=== PATIENT | female | born 1980 | race Caucasian/White ===

== ENCOUNTER 2016-08-07 00:41 | Emergency (ER) | payer OTHER ==
[~2016-08-07] VITALS: Ht 157.5 cm; Wt 60.8 kg
--- NOTE | 2016-08-07 00:49 | ED GI/GU/ABDOMINAL COMPLAINT ---
History of Present Illness General Chief Complaint: Female Urogenital Problems Stated Complaint: ? KIDNEY STONE 8 MTHS PREG Source: patient, family Exam Limitations: no limitations Vital Signs & Intake/Output Vital Signs & Intake/Output Vital Signs Date Time Temp Pulse Resp B/P B/P Pulse O2 O2 Flow FiO2 Mean Ox Delivery Rate 08/07 0244 97.5 91 18 109/80 95 Room Air 08/07 0124 Room Air 08/07 0115 96.6 86 16 111/64 96 Room Air Allergies Coded Allergies: No Known Allergies (08/07/16) Triage Nurses Notes Reviewed? yes ? y Is pt currently ? No HPI: Patient is 8 months . Patient at work today when she developed right flank pain. 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 Reshma for times went to [place]. While there she had an ultrasound which showed good movement. She was also diagnosed with a right sided kidney stone. Patient was given one Tylenol with Codeine while in the emergency room and then surgically discharged with prescription for Tylenol with Codeine. Patient went to the pharmacy and the pain became so intense that she had to lay on the floor. The pain is 10 out of 10. The pain is in the right flank and radiates towards the right groin. There is no nausea or vomiting. The pain is crampy and colicky in nature. There are no aggravating or mitigating factors. Past History Medical History Any Pertinent Medical History? see below for history Surgical History Surgical History: non-contributory Psychosocial History Tobacco Use: Quit >30 days ago ETOH Use: denies use Illicit Drug Use: denies illicit drug use Family History Hx Contributory? No Review of Systems Review of Systems Constitutional: Reports: no symptoms. EENTM: Reports: no symptoms. Respiratory: Reports: no symptoms. Cardiovascular: Reports: no symptoms. GI: Reports: see HPI. Genitourinary: Reports: no symptoms. Musculoskeletal: Reports: see HPI, back pain. Skin: Reports: no symptoms. Neurological/Psychological: Reports: no symptoms. Hematologic/Endocrine: Reports: no symptoms. Immunologic/Allergic: Reports: no symptoms. All Other Systems: Reviewed and Negative Physical Exam Physical Exam General Appearance: well developed/nourished, alert, awake, anxious, moderate distress Head: atraumatic, normal appearance Eyes: Bilateral: PERRL, EOMI. Ears, Nose, Throat, Mouth: hearing grossly normal, moist mucous membrane Neck: normal inspection, supple, full range of motion Respiratory: normal breath sounds, chest non-tender, no respiratory distress, lungs clear Cardiovascular: regular rate/rhythm, normal peripheral pulses Gastrointestinal: normal bowel sounds, soft, non-tender, GRAVID Back: CVA tenderness (R) Extremities: normal range of motion Neurologic/Psych: no motor/sensory deficits, awake, alert, oriented x 3, normal gait, normal mood/affect Skin: intact, normal color, warm/dry Core Measures ACS in differential dx? No Severe Sepsis Present: No Septic Shock Present: No Progress Differential Diagnosis: kidney stone, UTI/pyelo Plan of Care: Orders Procedure Date/time Status COMPREHENSIVE METABOLIC PANEL 08/07 56 Complete CBC WITHOUT DIFFERENTIAL 08/07 56 Complete URINALYSIS 08/07 46 Complete Laboratory Tests 08/07/16 0108: Urine Color YEL, Urine Clarity CLEAR, Urine pH 7.0, Ur Specific [place] <= 1.005 , Urine Protein NEG, Urine Ketones TRACE H, Urine Nitrite NEG, Urine Bilirubin NEG, Urine Urobilinogen 0.2, Ur Leukocyte Esterase NEG, Ur Microscopic EXAM NOT REQUIRED, Urine Hemoglobin NEG, Urine Glucose NEG 08/07/16 0107: Anion Gap 7, Estimated GFR > 60, BUN/Creatinine Ratio 16.7, Glucose 94, Calcium 9.0, Total Bilirubin 0.3, AST 21, ALT 21, Alkaline Phosphatase 137 H, Total Protein 5.8 L, Albumin 3.0 L, Globulin 2.8, Albumin/Globulin Ratio 1.1, CBC w Diff NO MAN DIFF REQ, RBC 4.23, MCV 96.1, MCH 33.2 H, RDW 12.7, MPV 7.5, Gran % 79.9 H, Lymphocytes % 14.9 L, Monocytes % 4.2, Eosinophils % 0.3, Basophils % 0.7, Absolute Granulocytes 11.2 H, Absolute Lymphocytes 2.1, Absolute Monocytes 0.6, Absolute Eosinophils 0, Absolute Basophils 0.1, PUBS MCHC 34.5 Initial ED EKG: none Departure Departure Disposition: HOME OR SELF CARE Condition: Stable Clinical Impression Primary Impression: Kidney stone Referrals: MICHELL FRITZ,ELVIRA (PCP/Family) NILS SPARROW MD Additional Instructions: Return if symptoms worsen or for any concerns. Departure Forms: Customer Survey General Discharge Information Prescriptions: Current Visit Scripts Oxycodone HCl/Acetaminophen (Percocet 5-325 MG Tablet) 1-2 TAB PO Q6P PRN PAIN #20 TAB
[2016-08-07 01:23] LABS: ABSOLUTE BASOPHIL COUNT 0.1 /CUMM (0.0-0.2); ABSOLUTE EOSINOPHIL COUNT 0 /CUMM (0.0-0.7); ABSOLUTE GRANULOCYTE CT 11.2 /CUMM (1.4-6.5); ABSOLUTE LYMPH COUNT 2.1 /CUMM (1.2-3.4); ABSOLUTE MONOCYTE COUNT 0.6 /CUMM (0.10-0.60); BASOPHIL % 0.7 % (0.0-2.0); EOSINOPHIL % 0.3 % (0-5); GRANULOCYTE % 79.9 % (42.2-75.2); HEMATOCRIT 40.7 % (37-47); MEAN CORPUSCULAR HGB 33.2 PG (27.0-31.0); MEAN CORPUSCULAR HGB CONC 34.5 G/DL (33.0-37.0); MEAN CORPUSCULAR VOLUME 96.1 FL (81.0-99.0); MEAN PLATELET VOLUME 7.5 FL (7.4-10.4); PLATELET COUNT 182 /CUMM (130-400); RBC DISTRIBUTION WIDTH 12.7 % (11.5-14.5); RED BLOOD CELL CT 4.23 /CUMM (4.20-5.40); WHITE BLOOD CELL COUNT 14.1 /CUMM (4.8-10.8)
[2016-08-07 02:44] VITALS: BP 109/80
[2016-08-07] MEDS ORDERED: PERCOCET 5-3251 EACH PO (03:03)
== END 2016-08-07 03:45 ==
LOC: ERH 00:41
PROVIDERS: Emergency Medicine
DX: O26.93 Pregnancy related conditions, unspecified, third trimester (principal); N20.0 Calculus of kidney
CPT/HCPCS: 81003; 96374; 96375